=== PATIENT | female | born 1960 | race Caucasian/White ===

== ENCOUNTER → 2018-06-01 | Outpatient (CLI) | payer OTHER ==
[~2018-06-01] VITALS: Ht 157.5 cm; Wt 56.0 kg
[~2018-06-01] MED LIST: ANIMAL CHEWS1 EACH PO; LISINOPRIL10 MG PO; TYLENOL EXTRA500 MG PO
== END | disposition home or self-care (01) ==
LOC: AMB 07:16
DX: Z12.11 Encounter for screening for malignant neoplasm of colon (principal); D12.5 Benign neoplasm of sigmoid colon; K64.8 Other hemorrhoids; R73.9 Hyperglycemia, unspecified
CPT/HCPCS: 88305